=== PATIENT | male | born 1975 | race Caucasian/White ===

== ENCOUNTER 2025-03-15 09:57 | Emergency (ER) | payer BC, MEDICAID ==
[~2025-03-15] VITALS: Ht 182.9 cm; Wt 120.7 kg
[2025-03-15] MEDS ORDERED: KETOROLAC TROMETHAMINE 15 MG/ML VIAL ONE (10:19)
[2025-03-15] MEDS: KETOROLAC TROMETHAMINE 15 MG/ML VIAL IM ONE (10:23)
[2025-03-15] MEDS ORDERED: NAPR-1164 PO (10:37)
[2025-03-15 11:27] VITALS: BP 132/67; TEMP 98.6; O2SAT 98
== END 2025-03-15 11:27 | disposition home or self-care (01) ==
LOC: ER 10:00
DX: M75.42 Impingement syndrome of left shoulder (principal); M25.512 Pain in left shoulder
CPT/HCPCS: 99283; 96372; 73030; J1885